=== PATIENT | female | born 1965 | race Caucasian/White ===

== ENCOUNTER 2017-05-08 13:05 | Inpatient (IN) | payer BC ==
[~2017-05-08] VITALS: Ht 170.2 cm; Wt 83.9 kg
--- NOTE | ~2017-05-08 | HC ---
[facility] [place] [address] CONSULTATION Name: ELSI NOYOLA Room #: 542-P [facility] IN ..#: [id number] Admission: 05/08/17 Attend Phys: Alexandro Gramajo MD Discharge: 05/11/17 Date of : 65 Report #: [id number] THIS REPORT FOR: //name// CC: Remedios Galo DATE OF SERVICE: 05/08/2017 CHIEF COMPLAINT: Abdominal abscess. CONSULTING PHYSICIAN: Dr. Nieto. HISTORY OF PRESENT ILLNESS: The patient is a very pleasant 52-year-old female patient who was seen in the emergency department with complaint of an abscess in her abdominal wall skin. This is approximately 8 cm above her waist at the right lower quadrant abdominal wall. She has had previous folliculitis or small pimples, which she attributes to ingrown hairs from shaving. She was seen by her primary care physician, and she was treated with oral Bactrim for 48 hours. However, the pain became more severe and her erythema appeared to be spreading, therefore she sought evaluation in the emergency department. She has had subjective fevers. She has had some scant purulent drainage from the abscess. The patient did try to drain this with a needle at home, but this was not successful. She denies chills, diaphoresis, loss of consciousness, dizziness, hematuria, dysuria, melena or hematochezia. REVIEW OF SYSTEMS: Otherwise, negative. PAST MEDICAL HISTORY: Positive for panniculitis; positive for hypothyroidism; chronic neck pain and limited range of motion of the neck, mild sleep apnea, does not use CPAP. ALLERGIES: Include DOXYCYCLINE. HOME MEDICATIONS: Include Synthroid, Motrin and Tylenol. PAST SURGICAL HISTORY: Positive wisdom tooth extraction, tonsillectomy, left knee surgery. PHYSICAL EXAMINATION: GENERAL: The patient is awake, alert and oriented. She is afebrile and normotensive. She is in no acute distress, nontoxic. She does give appropriate history. The patient is fluent of speech. Cranial nerves are intact and symmetric. HEENT: No icterus. Mucosae are pink and moist. No jugular venous distention. HEART: Regular, without murmur. RESPIRATORY: Lungs clear to auscultation. No respiratory distress. ABDOMEN: Soft, nondistended, nontender to palpation. The lower abdominal wall just left of midline shows a raised erythematous region, which is quite tender to palpation, this is approximately 4-6 cm in diameter and is oval shaped. There is some [facility] [address] [place] [address] CONSULTATION Name: ELSI NOYOLA Room #: 542-P [facility] IN [facility].#: [id number] Admission: 05/08/17 Attend Phys: Alexandro Gramajo MD Discharge: 05/11/17 Date of : 65 Report #: [id number] scant purulent drainage, this is covered with an ABD dressing. There is mild erythema lateral to this, which does have some blanching. There are no peritoneal signs and no abdominal surgical scars. No obvious hernia. EXTREMITIES: Without clubbing, cyanosis or edema. Distal pulses are intact. NEUROLOGIC: No focal deficits. LABORATORY DATA: Reviewed, this shows a white count of 7.6, lactate of 0.8. Hemoglobin of 12.6, platelets of 167, segmental neutrophils 77%, creatinine of 1.0, total bilirubin of 0.3, AST of 37, ALT 53, alkaline phosphatase 69. Blood cultures pending. IMPRESSION: A 52-year-old female patient with lower abdominal wall abscess which appears to have begun as folliculitis, but appears to be resistant to her oral antibiotic therapy, unclear the depth and extent of the abscess cavity and agree with emergency department judgment not to incise and drain this at the bedside at this time. RECOMMENDATIONS: 1. Agree with inpatient admission with IV antibiotic therapy, which has already been started. 2. Will check CT scan of the abdomen and pelvis with IV contrast to better delineate the anatomy. 3. Will plan for incision and drainage, likely of this abscess in the operating room setting. Consultation very much appreciated. We will continue to follow closely and make further recommendations based upon clinical status. <ELECTRONICALLY SIGNED> By: Trey Dooley MD 05/12/17 1020 1619 [id number] Trey Dooley MD /nt
--- NOTE | ~2017-05-08 | HC ---
[facility] [place] [address] CONSULTATION Name: DENNYSELSI S Room #: 542-P [facility] IN ..#: [id number] Admission: 05/08/17 Attend Phys: Alexandro Gramajo MD Discharge: 05/11/17 Date of : 65 Report #: [id number] THIS REPORT FOR: //name// CC: Remedios Galo DATE OF SERVICE: 05/10/2017 CHIEF COMPLAINT: Surgical wound, abdominal wall. HISTORY OF PRESENT ILLNESS: This is a 52-year-old female patient who was admitted on 08 of May with increasing abdominal pain and redness. She was seen in the emergency department and was felt to have either a cellulitis or possible abscess. CT scan confirmed abscess, and she was taken to the operating room by Dr. Dooley. Wound cultures were obtained. Incision and drainage was done. The abscess pocket was noted to be 6 x 2 x 2.5 cm. Some copious brown purulence was identified and evacuated. I have been asked to see her with regard to ongoing wound care. The patient states that she will be likely going home tomorrow and requests that she have home health. PAST MEDICAL HISTORY: She is G3, para 2. She has previous arthrotomy, tonsillectomy, and hypothyroidism. SOCIAL HISTORY: Negative for alcohol or tobacco use. MEDICATIONS: Include clindamycin, diphenhydramine, levothyroxine, enoxaparin, morphine, hydrocodone, acetaminophen, zolpidem, nitroglycerin, ketorolac. ALLERGIES: CODEINE. FAMILY HISTORY: Noncontributory. REVIEW OF SYSTEMS: CONSTITUTIONAL: The patient denies fever, chills, or weight loss. NEUROLOGICAL: The patient has focal weakness. ENT: The patient denies earache, nasal drainage or sore throat. CARDIOVASCULAR: The patient denies chest pain, palpitation, diaphoresis. PULMONARY: The patient denies cough, shortness of breath. GASTROINTESTINAL: Does complain of abdominal wall pain. Denies nausea, but does have decreased appetite. Denies constipation. GENITOURINARY: The patient denies frequency, urgency of urination. Denies dysuria. ORTHOPEDIC: The patient has pain, swelling, and limitation in her strength. Other systems in the 13-point review of systems are negative other than that mentioned in history of present illness. [address] [address] CONSULTATION Name: ELSI NOYOLA Room #: 542-P [facility] IN .R.#: [id number] Admission: 05/08/17 Attend Phys: Alexandro Gramajo MD Discharge: 05/11/17 Date of : 65 Report #: [id number] PHYSICAL EXAMINATION: VITAL SIGNS: At this time, include pulse 74, respiratory rate of 20, blood pressure 133/80, temperature 97.7. GENERAL: This is a well-developed, well-appearing female patient, appears to be in no distress. HEAD: Normocephalic. EENT: Nose and throat are clear. NECK: Supple. LUNGS: Clear. HEART: Regular. ABDOMEN: Soft. Bowel sounds are present. Examination of the abdominal wall demonstrates left midline surgical wound. It has a clean, granulating base with some darker tissue along the edges. Does not appear to be overtly infected, although there is some surrounding erythema and induration. The area is moderately tender. There were no areas of fluctuance at this time. NEUROLOGIC: The patient is alert, oriented and appropriate. ORTHOPEDIC: The patient has no deformity of the extremities, no edema. CLINICAL IMPRESSION: Surgical wound following incision and drainage of an abscess at the abdominal wall. RECOMMENDATIONS: At this point in time, the patient will be likely discharged home tomorrow. She is wishing to have home health and wishing to have a single day dressing change and does not feel that she can accomplish this on her own or with family help. Therefore, we will use a silver alginate dressing that can be changed daily that might be able to be stretched out to every other day depending on how things progress. We will review this with the case management team here. I appreciate being asked to see the patient in consultation. <ELECTRONICALLY SIGNED> By: James Fishman MD 05/11/17 1654 1241 1614 James Fishman MD /nt
--- NOTE | ~2017-05-08 | O ---
[facility] [address] OPERATIVE REPORT Name: DENNYSELSI Vargas Room #: 542-P [facility] IN ..#: [id number] Admission: 05/08/17 Attend Phys: Alexandro Gramajo MD Discharge: 05/11/17 Date of : 65 Report #: [id number] THIS REPORT FOR: //name// CC: Alexandro Galo DATE OF SERVICE: 05/09/2017 PREOPERATIVE DIAGNOSIS: Lower abdominal wall abscess. POSTOPERATIVE DIAGNOSIS: Lower abdominal wall abscess pending microbiologic analysis and pathology. PROCEDURE: Incision and drainage with skin biopsy of abdominal wall abscess. SURGEON: Trey Dooley M.D. TECHNOLOGY CONSULTANT: None. ANESTHESIA: Local anesthetic. ESTIMATED BLOOD LOSS: 2 mL. SPECIMENS TO PATHOLOGY: Wound cultures times 2, including aerobic, anaerobic and fungal skin edge of abdominal wound biopsy sent. FINDINGS: Copious dark brown purulence identified. Abscess pocket measured approximately 6 cm x 2 cm x 2.5 cm. Wound was irrigated out with copious sterile saline. Hemostasis was obtained with electrocautery and direct pressure. Wound was packed with 0.25% Dakin's soaked stripped gauze and covered with sterile dressing. DRAINS PLACED: None. INDICATION FOR PROCEDURE: The patient is a very pleasant 52-year-old female patient with history of multiple cutaneous infections. She has been treated more recently with an apparent folliculitis that occurred after shaving some hair on her lower abdominal wall. This developed into a tender erythematous region. She was treated with oral Bactrim for approximately 48 hours by her primary care physician. When the patient noted that the erythema was spreading more rapidly and an area of swelling with scant purulent drainage was identified on her lower abdominal wall, she was evaluated in the emergency department and imaging of this pocket showed that there was an abscess in the subcutaneous tissue. This did not appear to penetrate the fascia or peritoneum. She was admitted for IV antibiotic therapy and general surgery was consulted. Detailed discussion of the risks and benefits of incision and drainage in the operating room setting was held with the patient and all [address] [address] OPERATIVE REPORT Name: DENNYSELSI Sam Room #: 542-P [facility] IN M.R.#: [id number] Admission: 05/08/17 Attend Phys: Alexandro Gramajo MD Discharge: 05/11/17 Date of : 65 Report #: [id number] questions were answered to her satisfaction. Written informed consent was obtained. DESCRIPTION OF PROCEDURE: The patient was brought to the operating room and placed in a supine position. Timeout was taken to verify the patient's identity and to plan the procedure. SCDs were in place on the lower extremities bilaterally. Preoperative antibiotics were administered, as she was already on a scheduled antibiotic regimen. Abdomen was sterilely prepped and draped with Betadine. The wound was examined. A transverse incision using a 10 blade was carried out through the skin and dermis. A pocket of copious malodorous dark brown purulence was identified and wound cultures were obtained and passed off for aerobic, anaerobic and fungal cultures. The wound was then explored digitally and with Context Relevantkauer suction device, and copious purulence was evacuated. The wound was measured as 6 cm in length running transverse x 2 cm in height x 2.5 cm deep. The wound was then irrigated with copious sterile saline and suctioned clear. Hemostasis was obtained with electrocautery. A skin edge biopsy was obtained using Adson forceps and a 10 blade. This was passed off as abdominal wall wound skin edge. The wound was then irrigated with copious saline and suctioned clear. The wound was then packed with 0.25% soaked Dakin's stripped gauze. Sterile 4 x 4s and ABD dressings were applied superficially. At this point, the case was ended. All instrumentation had been extracted and accounted for. All counts were correct per nurse report. The patient was awakened and taken to the postoperative care unit in stable condition. <ELECTRONICALLY SIGNED> By: Trey Dooley MD 05/12/17 1021 1338 1406 Trey Dooley MD /zoë
--- NOTE | ~2017-05-08 | S ---
[facility] [place] [address] SURGICAL PATH RPT PROCEDURE Name: DAYNA NOYOLA Room #: 542-P [facility] IN M.R.#: [id number] Admission: 05/08/17 Date of : 65 Discharge: 05/11/17 Report #: [id number] Path Case #: [id number] PATHOLOGY REPORT COLLECTION DATE: 05/09/2017 RECEIVED DATE: 05/11/2017 SUBMITTING PHYS: Dr. Trey Dooley OTHER PHYS: Dr. Remedios Galo SPECIMEN(S) RECEIVED: A.Skin edge abdominal wall wound * * * * * * * * * * * * FINAL DIAGNOSIS: "Skin edge abdominal wall wound," debridement: - Skin and subcutaneous tissue with acute and chronic inflammation, necrosis, granulation tissue, and pseudoepitheliomatous hyperplasia. (CLW:; d/t: 05/12/17) PATHOLOGIST: Mare Alvarez M.D. REPORT ELECTRONICALLY SIGNED BY: Mare Alvarez M.D. DATE/TIME: 05/12/2017 22:38 * * * * * * * * * * * * GROSS PATHOLOGY: The specimen is received in formalin labeled "Dayna Noyola, skin edge of abdominal wall wound". Received is an excision of gómez-brown, necrotic-appearing possible skin with attached necrotic soft tissue measuring 2.7 x 0.5 x 0.6 cm in greatest dimensions. The specimen is submitted entirely in cassette A1. (CAA; 05/11/2017) CLINICAL HISTORY: Abdominal wall abscess INITIAL CPT CODE(S): A; 42428 Professional services performed by [facility] at [facility] [address], [place] [address] Technical services performed by [facility] at [address] [place] [id number]. [facility] [address] [place] [address] SURGICAL PATH RPT PROCEDURE Name: DENNYSDAYNA Sam Room #: 542-P [facility] IN .R.#: [id number] Admission: 05/08/17 Date of : 65 Discharge: 05/11/17 Report #: [id number] Path Case #: [id number] [facility] [address] [address] PHONE: [phone] DIRECTOR: Jarad Shook M.D. * * * END OF REPORT * * *
[~2017-05-08 13:05] MED LIST: IBUPROFEN 400400 M2 PO; LEVOTHYROXIN0.125 M1 PO
[2017-05-08 13:08] VITALS: BP 149/89
[2017-05-08 14:10] LABS: ABSOLUTE NEUTROPHILS 5.9 thou/uL (1.4-8.2); BASOPHILS 0.4 % (0.0-2.0); EOSINOPHILS 1.8 % (0.0-3.0); HEMATOCRIT 37.5 % (37.0-47.0); HEMOGLOBIN 12.6 gm/dL (12.0-15.0); LYMPHOCYTES 12.2 % (24.0-44.0); MCH 30.4 pg (26.0-34.0); MCHC 33.6 g/dL (28.0-37.0); MCV 90.7 fL (80.0-100.0); MONOCYTES 8.7 % (1.0-8.0); PLATELET COUNT 167 thou/uL (150-400); POLYS 76.9 % (36.0-66.0); RBC 4.14 mil/uL (4.20-5.00); RDW 13.8 % (10.5-14.5); WBC 7.6 thou/uL (4.0-11.0)
[2017-05-08 14:11] LABS: MANUAL DIFF NO
[2017-05-08 14:17] LABS: CALCIUM 8.7 mg/dL (8.5-10.1)
[2017-05-08 14:22] LABS: ALBUMIN 3.6 g/dL (3.4-5.0); TOTAL BILIRUBIN 0.3 mg/dL (<0.1-1.0); TOTAL PROTEIN 7.4 g/dL (6.4-8.2)
[2017-05-08] MEDS ORDERED: LEVOTHYROXIN0.112 M1 PO (14:27)
[2017-05-08] MEDS ORDERED: ADVIL200 M1 PO (14:28)
[2017-05-08] MEDS ORDERED: APAP500 PO (14:29)
[2017-05-08 19:13] VITALS: BP 139/68
[2017-05-08 22:51] VITALS: BP 132/50
[2017-05-09 03:02] VITALS: BP 118/59
[2017-05-09 03:19] LABS: GLYCOHEMOGLOBIN (HGB A1C) 5.4 % (4.8-5.6)
[2017-05-09 03:46] LABS: HEMATOCRIT 33.4 % (37.0-47.0); HEMOGLOBIN 11.3 gm/dL (12.0-15.0); MCH 30.5 pg (26.0-34.0); MCHC 33.8 g/dL (28.0-37.0); MCV 90.3 fL (80.0-100.0); RBC 3.7 mil/uL (4.20-5.00); RDW 13.6 % (10.5-14.5); WBC 6.4 thou/uL (4.0-11.0)
[2017-05-09 17:04] VITALS: BP 116/65
[2017-05-09 19:42] VITALS: BP 124/57
[2017-05-10 05:12] VITALS: BP 104/57
[2017-05-10 07:30] VITALS: BP 133/80
[2017-05-10 15:45] VITALS: BP 140/65
[2017-05-10 19:26] VITALS: BP 135/68
[2017-05-11 07:35] VITALS: BP 143/82
[2017-05-11] MEDS ORDERED: HYDROCODON-ACE1 EAC7 PO (10:39)
[2017-05-11] MEDS ORDERED: KEFLEX500 MG PO (10:39)
[2017-05-11] MEDS ORDERED: COLACE 100 MG100 MG PO (10:39)
[2017-05-11 13:32] VITALS: BP 143/82
[2017-05-11 13:36] VITALS: BP 143/82
[2017-05-11 13:42] VITALS: BP 143/82
== END 2017-05-11 16:05 | disposition home health service (06) | DRG 580 ==
LOC: ER 13:05 → 5S 14:47 → EROBS 14:47 → 5S 16:23
PROVIDERS: Hospitalist; Physician Assistant
PROC: 0J980ZZ Drainage of Abdomen Subcutaneous Tissue and Fascia, Open Approach (ICD-10-PCS; principal; 2017-05-09)
PROC: 0HB7XZX Excision of Abdomen Skin, External Approach, Diagnostic (ICD-10-PCS; principal; 2017-05-09)
DX: M79.3 Panniculitis, unspecified (principal); L02.211 Cutaneous abscess of abdominal wall; L03.311 Cellulitis of abdominal wall; E03.9 Hypothyroidism, unspecified; G89.29 Other chronic pain; M54.9 Dorsalgia, unspecified; K08.409 Partial loss of teeth, unspecified cause, unspecified class; E66.9 Obesity, unspecified; E74.39 Other disorders of intestinal carbohydrate absorption; Z88.1 Allergy status to other antibiotic agents; Z68.29 Body mass index [BMI] 29.0-29.9, adult; Z88.6 Allergy status to analgesic agent
CPT/HCPCS: 10086; 50010; 50101; 50386; 50417; 62110; 62900; 70005

== ENCOUNTER → 2017-05-19 | Outpatient (CLI) | payer BC ==
[~2017-05-19] MED LIST changes: +ADVIL200 M1 PO; +APAP500 PO; +COLACE 100 MG100 MG PO; +HYDROCODON-ACE1 EAC7 PO; +KEFLEX500 MG PO; +LEVOTHYROXIN0.112 M1 PO
== END ==
LOC: HYPER 07:13
DX: T81.89XA Other complications of procedures, not elsewhere classified, initial encounter (principal); M79.3 Panniculitis, unspecified; E66.9 Obesity, unspecified; E03.9 Hypothyroidism, unspecified; G47.30 Sleep apnea, unspecified; M17.9 Osteoarthritis of knee, unspecified; Z86.14 Personal history of Methicillin resistant Staphylococcus aureus infection; Z68.26 Body mass index [BMI] 26.0-26.9, adult; Y83.8 Other surgical procedures as the cause of abnormal reaction of the patient, or of later complication, without mention of misadventure at the time of the procedure

== ENCOUNTER → 2017-11-10 | Outpatient (CLI) | payer BC | LOC: RAD 11-03 15:27 | DX: Z12.31 Encounter for screening mammogram for malignant neoplasm of breast (principal) ==

== ENCOUNTER → 2018-12-03 | Outpatient (CLI) | payer BC | LOC: RAD 09:34 | DX: Z12.31 Encounter for screening mammogram for malignant neoplasm of breast (principal) ==

== ENCOUNTER → 2019-12-05 | Outpatient (CLI) | payer BC | LOC: BC 09:11 | DX: Z12.31 Encounter for screening mammogram for malignant neoplasm of breast (principal) ==

== ENCOUNTER → 2019-12-08 | Outpatient (CLI) | payer BC | LOC: RAD 09:40 → ULTRA 09:40 → RAD 11:17 | DX: N63.10 Unspecified lump in the right breast, unspecified quadrant (principal); N63.20 Unspecified lump in the left breast, unspecified quadrant; R92.2 Inconclusive mammogram ==

== ENCOUNTER → 2021-02-27 | Outpatient (CLI) | payer OTHER | LOC: BC 01-07 11:54 | PROVIDERS: ATTEND Family Medicine | DX: Z12.31 Encounter for screening mammogram for malignant neoplasm of breast (principal) ==